=== PATIENT | female | born 2000 ===

== ENCOUNTER 2020-11-17 12:27 | Emergency (ER) | payer SELFPAY | END 2020-11-17 13:53 | disposition left against medical advice (07) | LOC: ED 12:27 | DX: R10.9 Unspecified abdominal pain (principal); Z53.21 Procedure and treatment not carried out due to patient leaving prior to being seen by health care provider ==

== ENCOUNTER 2020-12-02 20:14 | Emergency (ER) | payer MEDICAID ==
[2020-12-02 21:27] VITALS: BP 121/98
[2020-12-02 22:13] LABS: Bacteria,Urine 1+ /HPF (Negative); Bilirubin,Urine NEG (Negative); Blood,Urine NEG (Negative); Color,Urine Yellow (Yellow); Mucus,Urine 1+ /HPF; Protein,Urine <15 mg/dL mg/dL (Negative); Urobilinogen,Urine < 2.0 mg/dL (<2.0)
[2020-12-02 22:42] LABS: Basophils % (Auto) 0.6 % (0.0-1.8); Eosinophils # (Auto) 0.3 K/mm3 (0.0-0.4); Hematocrit 37.9 % (30.3-42.9); Hemoglobin 12.9 gm/dl (10.1-14.3); Lymphocytes # (Auto) 2.2 K/mm3 (1.2-5.4); Lymphocytes % (Auto) 34.4 % (13.4-35.0); Mean Corpuscular HGB Conc 34 % (30-34); Mean Corpuscular Volume 75 fl (79-97); Monocytes # (Auto) 0.6 K/mm3 (0.0-0.8); Monocytes % (Auto) 9.9 % (0.0-7.3); Platelet Count 234 K/mm3 (140-440); Red Blood Count 5.06 M/mm3 (3.65-5.03); Red Cell Distribution Width 15.1 % (13.2-15.2)
[2020-12-02 22:55] LABS: Alanine Aminotransferase 16 units/L (7-56); Albumin 4.5 g/dL (3.9-5); Blood Urea Nitrogen 9 mg/dL (7-17); Calcium 9.5 mg/dL (8.4-10.2); Hemolysis Index 3
[2020-12-02 22:57] LABS: BUN/Creatinine Ratio 18
[2020-12-03] MEDS ORDERED: ONDANSETRON 4 MG ODT TAB ONE (01:45)
--- NOTE | 2020-12-05 18:07 | Electrocardiograph Report ---
[facility] Test Date: 2020-12-03 Test Time: 01:40:00 Pat Name: AMY BENAVIDES Department: Room: Gender: F [employer]: SAVANNAH : [id number] Requested By: PARISH JOSE Order Number: [id number] Reading MD: Zane Nobles Measurements Intervals [place] Rate: 135 P: MD: QRS: 44 QRSD: 79 T: -79 QT: 313 QTc: 471 Interpretive Statements Rapid atrial fibrillation Probable LVH with secondary repol abnrm No previous ECG available for comparison Electronically Signed On 12-05-2020 18:06:33 EDT by Zane Nobles
== END 2020-12-03 01:00 | disposition left against medical advice (07) ==
LOC: ED 20:14
DX: R11.2 Nausea with vomiting, unspecified (principal); Z53.21 Procedure and treatment not carried out due to patient leaving prior to being seen by health care provider
CPT/HCPCS: 36415; 80053; 81001; 84703; 85025; 93005; Q0162